=== PATIENT | male | born 1965 | race Caucasian/White ===

== ENCOUNTER → 2020-01-23 10:33 | Outpatient (CLI) | payer OTHER, MEDICAID, SELFPAY ==
[2020-01-23 11:51] LABS: Hematocrit 27.4 % (41-53); Hemoglobin 8.1 g/dL (13.5-17.5); Mean Corpuscular HGB Conc 29.7 % (30-36); Mean Corpuscular Hemoglobin 18.6 PG (26-34); Mean Corpuscular Volume 62.7 fL (80-100); Platelet Count 465 X10^3/uL (150-400); Red Blood Cell Count 4.37 X10^6/uL (4.5-5.9); Red Cell Distribution Width 18.1 % (11.6-14.8); White Blood Cell Count 7.9 X10^3/uL (4.5-11.0)
[2020-01-23 11:57] LABS: Alanine Aminotransferase 14 IU/L (<50); Albumin 4.9 g/dL (3.5-5.0); Albumin Globulin Ratio 1.2 (1.0-2.8); Alkaline Phosphatase 79 U/L (38-126); Aspartate Aminotransferase 25 IU/L (17-59); BUN Creatinine Ratio 16.7 (6-22); Bilirubin Total 0.4 mg/dL (0.2-1.3); Blood Urea Nitrogen 15 mg/dL (9-20); Calcium 9.8 mg/dL (8.4-10.2); Carbon Dioxide 24 mmol/L (22-32); Chloride 102 mmol/L (98-107); Cholesterol 293 mg/dL (140-199); Estimated Glomerular Filt Rate > 60.0 mL/min (>60); Glucose 121 mg/dL (70-100); HDL Cholesterol 37 mg/dL (40-60); HEMOLYSIS < 15 (0-50); LDL Cholesterol Calculated 208 mg/dL (<100); Potassium 4.2 mmol/L (3.4-5.1); Sodium 138 mmol/L (137-145); Total Protein 8.9 g/dL (6.3-8.2); Triglycerides 240 mg/dL (35-150)
[2020-01-23 12:13] LABS: Anisocytosis 1+; Hypochromasia 2+; Microcytosis 1+; Neutrophils Absolute Manual 5451 /uL (3000-5900); Ovalocytes 1+; Total Cells Counted 100
[2020-01-23 12:57] LABS: TSH w/ Reflex to FT4 1.26 uIU/mL (0.47-4.68)
[2020-01-23 16:51] LABS: HEMOLYSIS < 15 (0-50); Iron 21 ug/dL (49-181)
[2020-01-23 16:53] LABS: Hemoglobin A1C% w Est Avg Glu 5.6 % (4.0-6.0)
[2020-01-23 17:03] LABS: Percent Iron Saturation 4 % (20-50); Total Iron Binding Capacity 527 ug/dL (261-462); Transferrin 423 mg/dL (206-381)
[2020-01-23 17:27] LABS: Ferritin 5 ng/mL (18-464)
== END ==
PROVIDERS: PCP Family Medicine; Referring Provider Family Medicine; Visit Provider Family Medicine
DX: M06.9 Rheumatoid arthritis, unspecified (principal); D64.9 Anemia, unspecified; R73.9 Hyperglycemia, unspecified
CPT/HCPCS: 36415; 80053; 80061; 82728; 83036; 83540; 83550; 84443; 85025

== ENCOUNTER 2020-08-06 11:53 | Emergency (ER) | payer OTHER, MEDICAID, SELFPAY ==
[2020-08-06] VITALS (11 sets, daily range): BP systolic 123–185; BP diastolic 78–107; PULSE 71–114; RESP 13–38; TEMP 36.3; O2SAT 97–100; BMI 23.0
--- NOTE | 2020-08-06 12:24 | DI.RAD.S_ITS ---
PROCEDURE: XR CHEST 2V INDICATIONS: loss of consciousness TECHNIQUE: 2 views of the chest were acquired. COMPARISON: None. FINDINGS: Surgical changes and devices: None. Lungs and pleura: Lungs are clear. No pleural effusions or pneumothorax. Mediastinum: Mediastinal contours are normal. Heart size is normal. A moderate hiatal hernia is seen. Bones and chest wall: No suspicious bony abnormalities. Soft tissues appear unremarkable. IMPRESSION: No acute cardiopulmonary process is seen. Moderate hiatal hernia noted. Dictated by: Benjie Keyes M.D. on 08/06/2020 at 11:53 Approved by: Benjie Keyes M.D. on 08/06/2020 at 11:54
--- NOTE | 2020-08-06 12:27 | ED_ITS ---
HPI - Seizure General Chief Complaint: Seizure Stated Complaint: thinks he had a seizure last night Time Seen by Provider: 08/06/20 11:57 Source: patient Mode of arrival: Ambulatory Limitations: no limitations History of Present Illness HPI Narrative: PATIENT IS A 55-YEAR-OLD MALE WHO PRESENTS WITH A VARIETY OF SYMP TOMS. HE THINKS HE MAY HAVE HAD A SEIZURE AT LAST EVENING. HE SAID HE WAS TALKING AND STANDING WITH HIS FRIEND GETTING READY TO EAT DINNER WHEN HE FELT EXTREMELY LIGHTHEADED AND NAUSEOUS ALL SWEATY AND FELT LIKE HE MIGHT PASS OUT SO HE SAT DOWN. HE THEN LEANED BACK AND BECAME VERY STIFF AND SHOOK FOR 30-45 seconds. At which point he came to he was not confused he did not bite his tongue he did not have urinary incontinence. He has no prior history of seizure. He says he has not had any alcoholic beverage for the last 2 months and typically does not have a problem with alcohol. He however has also been complaining of increased shortness of breath worse with exertion ongoing for at least a year but seems to be progressively getting worse over the past few months. He denies any orthopnea no chest pain or palpitations. He also is complaining of depression. His girlfriend of 10 years and their 2 children have moved to [place]. He states that he has been a riro-kw-kvhp dad the last 2 years for his kids he has not been in the work force, she sold their house he is now currently homeless and does not have a job in does not know when he is going to see his kids again. He has had suicidal thoughts even a plan of a trick oxide to kill himself. However he denies wanting to harm himself today he would like a life and his children back. complaint: possible seizure Related Data Previous Rx's Medication Instructions Recorded celecoxib 200 mg capsule See Rx Instructions .ROUTE 01/23/20 .COMPLEX #60 capsule ferrous sulfate 325 mg PO DAILY #30 tab 08/06/20 lisinopril 10 mg tablet See Rx Instructions .ROUTE 08/06/20 .COMPLEX #90 tab Allergies Allergy/AdvReac Type Severity Reaction Status Date / Time No Known Drug Allergies Allergy Verified 07/22/20 10:57 Review of Systems Review of Systems ROS Unobtainable: All systems reviewed & are unremarkable except as noted in HPI and below Constitutional Constitutional: Denies chills, Denies fever(s), Denies lethargy and Denies weakness Eyes Eyes: Denies change in vision, Denies eye discharge, Denies irritation and Denies loss of vision Gastrointestinal Gastrointestinal: Denies abdominal pain, Denies change in bowel habits, Denies diarrhea, Denies nausea and Denies vomiting Musculoskeletal Musculoskeletal: Denies back pain and Denies deformity Integumentary/Breasts Skin/Breast: Denies pruritus, Denies erythema, Denies rash and Denies wounds Neurologic Neurologic: Reports as per HPI, Denies loss of vision and Denies weakness Psychiatric Psychiatric: Reports as per HPI and Reports depression Patient History Medical History Chicken pox (Resolved ~1974) Rheumatoid arthritis (Chronic 1991) Surgical History No history of previous surgery (Resolved 07/23/14) Family History Mother Age: 79 Diabetes mellitus Brother No problems noted. Father Pancreatic cancer Social History marital status: unmarried,living together Smoking Status: Former smoker alcohol intake: current (ON OCCASION ) substance use type: does not use Smoking Status: Former smoker alcohol intake frequency: a few times a week Substance Use Type: does not use Exam Initial Vital Signs Initial Vital Signs: Vital Signs Temperature 97.3 F L 08/06/20 12:09 Pulse Rate 114 H 08/06/20 12:09 Respiratory Rate 21 08/06/20 12:09 Blood Pressure 125/83 08/06/20 12:09 Pulse Oximetry 97 08/06/20 12:09 GENERAL: Well-appearing, well-nourished and in no acute distress. HEENT: Head atraumatic,EOMI, pupils reactive, face symmetric, moist mucous membranes CARDIOVASCULAR: Regular rate and rhythm without murmurs, rubs or gallops. RESPIRATORY: Breath sounds equal bilaterally, no wheezes rales or rhonchi. ABDOMEN: Soft, nontender. Normoactive bowel sounds all 4 quadrants. No guarding or rebound. EXTREMITIES: Normal range of motion, no clubbing or edema. Neurovascularly intact NEUROLOGICAL: Alert and oriented x4.Normal gait and speech. SKIN: Warm, dry, no laceration, no petechiae, no rashes or lesions. Scores ABCD2 Citation: Lancet. 2006Dec 24;369(3870):492-71. Validation and refinement of scores to predict very early stroke risk after transient ischaemic attack. Marleny SC1, Mely PM, Anibal MN, Anson MF, Chiki JS, Romy AL, Jorge S. Course Orders Ordered: ED Orders 08/06/20 12:20 Consult to HANGER OFF - Information Director Stat 08/06/20 12:24 XR chest 2V Stat EKG-12 Lead Stat 08/06/20 12:31 Basic Metabolic Panel Stat Complete Blood Count AUTO DIFF Stat D Dimer Stat NT-proBNP (BNP-Adult 18+) Stat Troponin & CK Cardiac Panel Stat 08/06/20 13:05 CT angio chest PE protocol Stat 08/06/20 13:18 COVID19 -ED/INPAT/OR/L&D Stat Vital Signs Vital signs: Vital Signs - 8 hr 08/06/20 12:09 08/06/20 12:34 08/06/20 13:00 Temperature 97.3 F L Pulse Rate 114 H 92 H 83 Respiratory Rate 21 Blood Pressure 125/83 Pulse Oximetry 97 97 97 08/06/20 13:30 08/06/20 14:00 08/06/20 14:06 Temperature Pulse Rate 102 H 77 71 Respiratory Rate 18 19 13 Blood Pressure 123/78 Pulse Oximetry 99 100 100 08/06/20 14:30 08/06/20 15:00 08/06/20 15:01 Temperature Pulse Rate 89 98 H 105 H Respiratory Rate 20 27 H 24 Blood Pressure 149/93 H 141/101 H Pulse Oximetry 100 99 99 08/06/20 15:30 08/06/20 15:31 Temperature Pulse Rate 103 H 102 H Respiratory Rate 38 H 30 H Blood Pressure 185/107 H Pulse Oximetry 98 98 MDM - Seizure Lab Data Attestation: I reviewed the patient's lab results. Result diagrams: 08/06/20 12:31 08/06/20 12:31 Labs: Lab Results 08/06/20 08/06/20 08/06/20 Range/Units 12:31 12:31 12:31 WBC 8.7 (4.5-11.0) X10^3/uL RBC 4.18 L (4.5-5.9) X10^6/uL Hgb 8.9 L (13.5-17.5) g/dL Hct 28.7 L (41-53) % MCV 68.5 L (80-100) fL MCH 21.4 L (26-34) PG MCHC 31.2 (30-36) % RDW 20.1 H (11.6-14.8) % Plt Count 450 H (150-400) X10^3/uL Neut % (Auto) 70.9 (50-75) % Lymph % (Auto) 20.2 L (25-40) % Mcminn % (Auto) 6.8 (3-14) % Eos % (Auto) 1.3 L (2-4) % Baso % (Auto) 0.8 (0-2) % Neut # (Auto) 6100 (5936-6812) /uL Lymph # (Auto) 1800 (7358-6963) /uL Mcminn # (Auto) 600 (0-900) /uL Eos # (Auto) 100 (0-450) /uL Baso # (Auto) 100 (0-100) /uL RBC Morphology Not Reportable Hypochromasia 1+ H Poikilocytosis 1+ H Anisocytosis 1+ H Microcytosis 1+ H D-Dimer 548 H (<230) ng/mL Sodium 134 L (137-145) mmol/L Potassium 4.1 (3.4-5.1) mmol/L Chloride 101 (98-107) mmol/L Carbon Dioxide 26 (22-32) mmol/L BUN 19 (9-20) mg/dL Creatinine 1.00 (0.66-1.25) mg/dL Estimated GFR > 60.0 (>60) mL/min BUN/Creatinine Ratio 19.0 (6-22) Glucose 121 H (70-100) mg/dL Calcium 9.5 (8.4-10.2) mg/dL Total Creatine Kinase (55-170) U/L CK-MB (CK-2) CK-MB (CK-2) Rel Index Troponin I (0.01-0.034) ng/mL NT-Pro-B Natriuret Pep (<125) pg/mL COVID-19 PCR (Negative) 08/06/20 08/06/20 Range/Units 12:31 13:18 WBC (4.5-11.0) X10^3/uL RBC (4.5-5.9) X10^6/uL Hgb (13.5-17.5) g/dL Hct (41-53) % MCV (80-100) fL MCH (26-34) PG MCHC (30-36) % RDW (11.6-14.8) % Plt Count (150-400) X10^3/uL Neut % (Auto) (50-75) % Lymph % (Auto) (25-40) % Mcminn % (Auto) (3-14) % Eos % (Auto) (2-4) % Baso % (Auto) (0-2) % Neut # (Auto) (6653-1824) /uL Lymph # (Auto) (4287-8168) /uL Mcminn # (Auto) (0-900) /uL Eos # (Auto) (0-450) /uL Baso # (Auto) (0-100) /uL RBC Morphology Hypochromasia Poikilocytosis Anisocytosis Microcytosis D-Dimer (<230) ng/mL Sodium (137-145) mmol/L Potassium (3.4-5.1) mmol/L Chloride (98-107) mmol/L Carbon Dioxide (22-32) mmol/L BUN (9-20) mg/dL Creatinine (0.66-1.25) mg/dL Estimated GFR (>60) mL/min BUN/Creatinine Ratio (6-22) Glucose (70-100) mg/dL Calcium (8.4-10.2) mg/dL Total Creatine Kinase 69 (55-170) U/L CK-MB (CK-2) TNP CK-MB (CK-2) Rel Index TNP Troponin I < 0.012 (0.01-0.034) ng/mL NT-Pro-B Natriuret Pep 31 (<125) pg/mL COVID-19 PCR Negative (Negative) Imaging Data Chest x-ray: Radiologist's Impression: PROCEDURE: XR CHEST 2V INDICATIONS: loss of consciousness TECHNIQUE: 2 views of the chest were acquired. COMPARISON: None. FINDINGS: Surgical changes and devices: None. Lungs and pleura: Lungs are clear. No pleural effusions or pneumothorax. Mediastinum: Mediastinal contours are normal. Heart size is normal. A moderate hiatal hernia is seen. Bones and chest wall: No suspicious bony abnormalities. Soft tissues appear unremarkable. IMPRESSION: No acute cardiopulmonary process is seen. Moderate hiatal hernia noted. Dictated by: Benjie Keyes M.D. on 08/06/2020 at 11:53 CT scan - chest: Radiologist's Impression: PROCEDURE: CT ANGIO CHEST PE PROTOCOL INDICATIONS: +dimer with sob TECHNIQUE: After the administration of intravenous contrast, 2 mm thick sections acquired from the pulmonary apices to the posterior costophrenic angles. 3-dimensional maximum intensity projection (MIP) coronal and sagittal reformats were then acquired through the thorax. For radiation dose reduction, the following was used: automated exposure control, adjustment of mA and/or kV according to patient size. COMPARISON: [facility], , XR CHEST 2V, 08/06/2020, 12:32. FINDINGS: Image quality: Excellent. Pulmonary arteries: Pulmonary arteries are normal in size, and demonstrate no intraluminal filling defects to suggest central pulmonary embolism. Lungs and pleura: There is a 2 mm subpleural nodule in the right upper lobe (series 5, image 55), and a couple of 4 mm subpleural nodules in the right lower lobe (series 5, image 285 and 292). No pleural effusions or pneumothorax. Central and peripheral airways are patent. Mediastinum: Heart size is normal, without pericardial effusion. No mediastinal or hilar adenopathy. Thoracic aorta is normal in caliber and enhancement. Esophagus is normal in caliber. There is a large hiatal hernia. Bones and chest wall: No suspicious bony lesions. Ribs and thoracic spine appear intact throughout. Thyroid gland is normal . No axillary or supraclavicular adenopathy. Abdomen: Visualized upper abdominal solid organs appear normal in the early arterial phase of enhancement. IMPRESSION: 1. No evidence for pulmonary embolism. 2. A few small pulmonary nodules as described. Please see enclosed follow-up recommendation. 3. Large hiatal hernia. Fleischner Society criteria for SOLID lung nodule followup. Nodule size (mm)Low-risk patientHigh-risk patient?4No follow-up neededFollow-up at 12 mo; if no change, no further follow-up>3-5Lfdmhv-nh CT at 12 mo; if no change, no further follow-up needed.Initial follow-up CT at 6-12 mo, then 18-24 mo if no change. >6-8Initial follow-up CT at 6-12 mo, then 18-24 mo if no change. Initial follow- up CT at 3-6 mo, then 9-12 mo and 24 mo if no change. >8Follow-up CT at 3, 9, 24 mo. Or PET and/or biopsy.Same as for low-risk pts. Dictated by: Mackenzie Murphy M.D. on 08/06/2020 at 12:40 Approved by: Mackenzie Murphy M.D. on 08/06/2020 at 13:04 ECG Data Attestation: I personally reviewed and interpreted this ECG as follows: Interpretation: Sinus rhythm rate 99 p.r. interval 176 QRS [address] changes Q-wave noted in lead 3 MDM Narrative Medical decision making narrative: Patient is be anemic however is slightly improved from December this is likely the cause of his shortness of breath. However his D-dimer is elevated and will get a CTA to rule out bleed. The PE study is negative COVID is negative Patient does not meet involuntary criteria not actively suicidal. He has been evaluated by social Work as well. She is anemic he says that he knows he is anemic he is supposed to be on iron supplements but I suspect that this is why he is short of breath with exertion. Recommend outpatient follow-up with his PCP for cause of anemia. Patient intermittently has blood in his stool but denies any black stool or gross blood per rectum. Discharge Plan Departure Patient Disposition: Home Clinical Impression: Anemia Qualifiers: Anemia type: unspecified type Qualified Code(s): D64.9 - Anemia, unspecified Discharge Date/Time: 08/06/20 15:56 Instructions: Depression, Anemia Activity Restrictions/Additional Instructions: *You have been diagnosed with anemia, depression *What to do: Follow-up with Dr. Ortiz in regards to your anemia I believe this is what is causing her shortness of breath. May require iron supplements. Please reach out if you are feeling suicidal If you are feeling suicidal or having suicidal thoughts: Call: Suicide Hotline: Visit: www.[employer].iList Text: 035664 *Continue to take medications as directed Ferrous sulfate 325 mg once daily *Follow up with your primary care provider in 2-3 days *Return to ER if you should have increasing shortness of breath, chest pain, fever or any new, worsening or concerning symptoms Prescriptions: New ferrous sulfate 325 mg (65 mg iron) tablet,delayed release (DR/EC) 325 mg PO DAILY Qty: 30 RF: 0 No Action celecoxib 200 mg capsule See Rx Instructions .ROUTE .COMPLEX Qty: 60 RF: 12 lisinopril 10 mg tablet See Rx Instructions .ROUTE .COMPLEX Qty: 90 RF: 3 Referrals: Prince Ortiz MD [Primary Care Provider] -
[2020-08-06 12:49] LABS: Add Manual Diff / Slide Review NO; Basophils Absolute Auto 100 /uL (0-100); Basophils Percent Auto 0.8 % (0-2); Eosinophils Absolute Auto 100 /uL (0-450); Eosinophils Percent Auto 1.3 % (2-4); Hematocrit 28.7 % (41-53); Hemoglobin 8.9 g/dL (13.5-17.5); Lymphocytes Absolute Auto 1800 /uL (1100-4500); Lymphocytes Percent Auto 20.2 % (25-40); Mean Corpuscular HGB Conc 31.2 % (30-36); Mean Corpuscular Hemoglobin 21.4 PG (26-34); Mean Corpuscular Volume 68.5 fL (80-100); Monocytes Absolute Auto 600 /uL (0-900); Monocytes Percent Auto 6.8 % (3-14); Neutrophils Absolute Auto 6100 /uL (1500-7000); Neutrophils Percent Auto 70.9 % (50-75); Platelet Count 450 X10^3/uL (150-400); Red Blood Cell Count 4.18 X10^6/uL (4.5-5.9); Red Cell Distribution Width 20.1 % (11.6-14.8); White Blood Cell Count 8.7 X10^3/uL (4.5-11.0)
[2020-08-06 12:52] LABS: D Dimer 548 ng/mL (<230)
[2020-08-06 12:55] LABS: Blood Urea Nitrogen 19 mg/dL (9-20); Calcium 9.5 mg/dL (8.4-10.2); Carbon Dioxide 26 mmol/L (22-32); Chloride 101 mmol/L (98-107); Estimated Glomerular Filt Rate > 60.0 mL/min (>60); Glucose 121 mg/dL (70-100); HEMOLYSIS < 15 (0-50); Potassium 4.1 mmol/L (3.4-5.1); Sodium 134 mmol/L (137-145)
--- NOTE | 2020-08-06 13:05 | DI.CT.S_ITS ---
PROCEDURE: CT ANGIO CHEST PE PROTOCOL INDICATIONS: +dimer with sob TECHNIQUE: After the administration of intravenous contrast, 2 mm thick sections acquired from the pulmonary apices to the posterior costophrenic angles. 3-dimensional maximum intensity projection (MIP) coronal and sagittal reformats were then acquired through the thorax. For radiation dose reduction, the following was used: automated exposure control, adjustment of mA and/or kV according to patient size. COMPARISON: [facility], CR, XR CHEST 2V, 08/06/2020, 12:32. FINDINGS: Image quality: Excellent. Pulmonary arteries: Pulmonary arteries are normal in size, and demonstrate no intraluminal filling defects to suggest central pulmonary embolism. Lungs and pleura: There is a 2 mm subpleural nodule in the right upper lobe (series 5, image 55), and a couple of 4 mm subpleural nodules in the right lower lobe (series 5, image 285 and 292). No pleural effusions or pneumothorax. Central and peripheral airways are patent. Mediastinum: Heart size is normal, without pericardial effusion. No mediastinal or hilar adenopathy. Thoracic aorta is normal in caliber and enhancement. Esophagus is normal in caliber. There is a large hiatal hernia. Bones and chest wall: No suspicious bony lesions. Ribs and thoracic spine appear intact throughout. Thyroid gland is normal . No axillary or supraclavicular adenopathy. Abdomen: Visualized upper abdominal solid organs appear normal in the early arterial phase of enhancement. IMPRESSION: 1. No evidence for pulmonary embolism. 2. A few small pulmonary nodules as described. Please see enclosed follow-up recommendation. 3. Large hiatal hernia. Fleischner Society criteria for SOLID lung nodule followup. Nodule size (mm)Low-risk patientHigh-risk patient?4No follow-up neededFollow-up at 12 mo; if no change, no further follow-up>1-3Dtkweg-og CT at 12 mo; if no change, no further follow-up needed.Initial follow-up CT at 6-12 mo, then 18-24 mo if no change. >6-8Initial follow-up CT at 6-12 mo, then 18-24 mo if no change. Initial follow-up CT at 3-6 mo, then 9-12 mo and 24 mo if no change. >8Follow-up CT at 3, 9, 24 mo. Or PET and/or biopsy.Same as for low-risk pts. Dictated by: Mackenzie Murphy M.D. on 08/06/2020 at 12:40 Approved by: Mackenzie Murphy M.D. on 08/06/2020 at 13:04
[2020-08-06 13:08] LABS: Anisocytosis 1+; Hypochromasia 1+; Microcytosis 1+; Poikilocytosis 1+
[2020-08-06 13:17] LABS: Creatine Kinase 69 U/L (55-170)
--- NOTE | 2020-08-06 13:29 | PC.NURSE ---
after iv placement and covid swab completed pt c/o feeling dizzy and sweaty, at that time it was noticed on the felling bucking supervisor to have a heart rate in the high 30's/ low 40's. pt placed on felling bucking supervisor for continued monitoring. symptoms resolved shortly afterwards and pt transported to CT. pt returned from CT and reports resolve of the symptoms.
[2020-08-06 13:30] LABS: NT-proBNP (BNP-Adult 18+) 31 pg/mL (<125); Troponin I < 0.012 ng/mL (0.01-0.034)
[2020-08-06 13:49] LABS: COVID19 -Nasal RAPID Negative (Negative)
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
== END 2020-08-06 15:56 | disposition home or self-care (01) ==
PROVIDERS: Emergency Provider Emergency Medicine; PCP Family Medicine
DX: D64.9 Anemia, unspecified (principal); R06.02 Shortness of breath; R79.89 Other specified abnormal findings of blood chemistry; F32.9 Major depressive disorder, single episode, unspecified; R55 Syncope and collapse
CPT/HCPCS: 36415; 71046; 71275; 80048; 82550; 83880; 84484; 85025; 85379; 87635; 93005; 99283; 99284; Q9967

== ENCOUNTER → 2021-04-02 10:06 | Outpatient (CLI) | payer OTHER, MEDICAID, SELFPAY ==
[2021-04-02] MEDS: COVID-19 VACC #1, MRNA(MOD) 100 MCG/0.5 ML VIAL IM (10:21)
== END ==
PROVIDERS: PCP Family Medicine; Visit Provider Internal Medicine
DX: Z23 Encounter for immunization (principal)
CPT/HCPCS: 0011A; 91301